=== PATIENT | female | born 1975 | race Caucasian/White ===

== ENCOUNTER 2018-10-18 01:26 | Emergency (ER) | payer OTHER ==
[~2018-10-18] VITALS: Ht 160 cm; Wt 77.1 kg
--- NOTE | 2018-10-18 01:55 | NUR ---
PT CAME IN TO ANIMAL INJURY ON INDEX FINGER, PLACED ON ER BED 5, SEEN AND EVAL BY DR TOLBERT, AWAITING ODRERS.
[2018-10-18] MEDS ORDERED: RABIES IMMUNE GLOBULIN/PF 150 UNIT/ML VIAL IM ONE ×2 (02:16→02:30)
[2018-10-18] MEDS ORDERED: RABIES VACCINE (PCEC)/PF 1 EA KIT IM ONE ×2 (02:24→02:30)
[2018-10-18] MEDS ORDERED: TDAP [DIPH/PERTUSSIS/TET] 0.5 ML VIAL IM ONE ×2 (02:26→02:30)
--- NOTE | 2018-10-18 03:00 | NUR ---
Patient discharged to home in stable condition. Written and verbal after care instructions given. Patient verbalizes understanding of instruction. Rabies shots given as well as tetnus.
[2018-10-18 03:28] VITALS: BP 122/77
== END 2018-10-18 03:29 | disposition home or self-care (01) ==
LOC: ER 01:28
DX: S61.230A Puncture wound without foreign body of right index finger without damage to nail, initial encounter (principal); F32.9 Major depressive disorder, single episode, unspecified; F41.9 Anxiety disorder, unspecified; F17.200 Nicotine dependence, unspecified, uncomplicated; Z98.890 Other specified postprocedural states; Z88.8 Allergy status to other drugs, medicaments and biological substances; W55.51XA Bitten by raccoon, initial encounter; Y93.89 Activity, other specified; Y92.89 Other specified places as the place of occurrence of the external cause; Y99.8 Other external cause status
CPT/HCPCS: 90375; 90715

== ENCOUNTER 2024-12-10 13:52 | Emergency (ER) | payer OTHER ==
[~2024-12-10] VITALS: Ht 160 cm; Wt 68.0 kg
[2024-12-10 15:34] VITALS: BP 128/67; TEMP 98; O2SAT 99
[2024-12-10 23:05] LABS: HIV-1 p24 ANTIGEN NON REACTIVE (NONREACTIVE); HIV-1/2 ANTIBODY NON REACTIVE (NONREACTIVE)
[2024-12-11 08:07] LABS: RAPID PLASMA REAGIN QUAL. Non Reactive (Non Reactive)
[2024-12-11 22:10] LABS: CHLAMYDIA TRACHOMATIS NAA Negative (Negative); NEISSERIA GONORRHOEAE NAA Negative (Negative)
[2024-12-14 13:10] LABS: *HSV 1 DNA PCR Negative (Negative); *HSV 2 DNA PCR Negative (Negative)
== END 2024-12-10 15:34 | disposition home or self-care (01) ==
LOC: ER 13:58
DX: L73.9 Follicular disorder, unspecified (principal); F17.200 Nicotine dependence, unspecified, uncomplicated; Z98.890 Other specified postprocedural states; Z88.8 Allergy status to other drugs, medicaments and biological substances
CPT/HCPCS: 36415; 86592; 86593; 87491; 87591; 87806

== ENCOUNTER 2025-04-01 21:32 | Emergency (ER) | payer OTHER ==
[~2025-04-01] VITALS: Ht 160 cm; Wt 54.4 kg
[2025-04-01 23:27] LABS: PREGNANCY TEST URINE QUAL NEGATIVE (NEGATIVE)
[2025-04-02 00:33] VITALS: BP 126/81; TEMP 97.4; O2SAT 95
[2025-04-04 21:07] LABS: CHLAMYDIA TRACHOMATIS NAA Negative (Negative); NEISSERIA GONORRHOEAE NAA Negative (Negative)
== END 2025-04-02 00:33 | disposition home or self-care (01) ==
LOC: ER 21:34
DX: S09.8XXA Other specified injuries of head, initial encounter (principal); F17.200 Nicotine dependence, unspecified, uncomplicated; Z11.3 Encounter for screening for infections with a predominantly sexual mode of transmission; W18.30XA Fall on same level, unspecified, initial encounter; Y93.89 Activity, other specified; Y92.89 Other specified places as the place of occurrence of the external cause; Y99.9 Unspecified external cause status
CPT/HCPCS: 70450-TC; 84703-TC; 87491; 87591

== ENCOUNTER 2025-05-19 00:03 | Emergency (ER) | payer MEDICAID, OTHER ==
[~2025-05-19] VITALS: Ht 162.6 cm; Wt 68.0 kg
[2025-05-19 04:32] LABS: APPEARANCE,URINE CLOUDY (CLEAR); BLOOD, URINE NEGATIVE Ery/uL (NEGATIVE); LEUKOCYTE ESTERASE ,URINE 1+ (NEGATIVE); NITRITE, URINE POSITIVE (NEGATIVE); UGLUCOSE NEGATIVE (NEGATIVE)
[2025-05-19 04:36] LABS: ADD URINE CULTURE YES; SQUAMOUS EPITHELIAL CELL,UR Rare /HPF (None Seen)
[2025-05-19] MEDS ORDERED: NITR100C6 PO (04:50)
[2025-05-19] MEDS ORDERED: NITROFURANTOIN/MONOHYDRATE MACROCRYSTALS 100 MG CAPSULE ONE (05:01)
[2025-05-19] MEDS: NITROFURANTOIN/MONOHYDRATE MACROCRYSTALS 100 MG CAPSULE PO ONE (05:07)
[2025-05-19 05:08] VITALS: BP 125/85; TEMP 98.1; O2SAT 97
[2025-05-21 00:07] LABS: CHLAMYDIA TRACHOMATIS NAA Negative (Negative); NEISSERIA GONORRHOEAE NAA Negative (Negative)
== END 2025-05-19 05:10 | disposition home or self-care (01) ==
LOC: ER 00:06
DX: N39.0 Urinary tract infection, site not specified (principal); F17.200 Nicotine dependence, unspecified, uncomplicated; Z11.3 Encounter for screening for infections with a predominantly sexual mode of transmission; F32.A Depression, unspecified; F41.9 Anxiety disorder, unspecified; Z88.8 Allergy status to other drugs, medicaments and biological substances; Z92.29 Personal history of other drug therapy
CPT/HCPCS: 81001; 87086-TC; 87491; 87591